=== PATIENT | female | born 1950 | race Caucasian/White ===

== ENCOUNTER 2020-09-26 18:13 | Emergency (ER) | payer MEDICARE, OTHER ==
[~2020-09-26] VITALS: Ht 157.5 cm; Wt 86.2 kg
[~2020-09-26 18:13] MED LIST: ASA81 MG PO; CALCIUM + D 601 EAC1 PO; VENLAFAXINE PO; Z.0.BENICAR HCT 201 PO; Z.0.LIPITOR20 MG PO; Z.0.MULTIVITAMINS1 E PO
== END 2020-09-26 21:37 | disposition home or self-care (01) ==
LOC: ER 18:36
DX: M54.41 Lumbago with sciatica, right side (principal); I10 Essential (primary) hypertension; E78.5 Hyperlipidemia, unspecified; Z98.84 Bariatric surgery status
CPT/HCPCS: 72100; 93971; 99283

== ENCOUNTER 2020-10-10 19:50 | Emergency (ER) | payer MEDICARE ==
[~2020-10-10] VITALS: Ht 157.5 cm; Wt 86.2 kg
== END 2020-10-10 20:04 | disposition home or self-care (01) ==
LOC: ER 19:54
DX: M54.41 Lumbago with sciatica, right side (principal); Z98.84 Bariatric surgery status
CPT/HCPCS: 99282